=== PATIENT | female | born 1950 | race American Indian/Alaskan Native ===

== ENCOUNTER 2021-06-11 16:47 | Emergency (ER) | payer MEDICARE ==
[2021-06-11] MEDS ORDERED: MORPHINE 4 MG/1 ML INJ IV ONE (20:25)
[2021-06-11] MEDS ORDERED: ONDANSETRON 4 MG/2 ML INJ IV ONE (20:25)
[2021-06-11 20:56] LABS: Basophils # (Auto) 0.1 K/mm3 (0.0-0.1); Basophils % (Auto) 1.1 % (0.0-1.8); Eosinophils # (Auto) 0.3 K/mm3 (0.0-0.4); Eosinophils % (Auto) 4.6 % (0.0-4.3); Hematocrit 43.5 % (30.3-42.9); Hemoglobin 14.2 gm/dl (10.1-14.3); Lymphocytes # (Auto) 2.4 K/mm3 (1.2-5.4); Lymphocytes % (Auto) 40.7 % (13.4-35.0); Mean Corpuscular HGB Conc 33 % (30-34); Mean Corpuscular Volume 96 fl (79-97); Monocytes # (Auto) 0.7 K/mm3 (0.0-0.8); Monocytes % (Auto) 12.6 % (0.0-7.3); Platelet Count 374 K/mm3 (140-440); Red Blood Count 4.54 M/mm3 (3.65-5.03); Red Cell Distribution Width 13.2 % (13.2-15.2)
[2021-06-11 21:42] LABS: Alanine Aminotransferase 18 units/L (7-56); BUN/Creatinine Ratio 23; Blood Urea Nitrogen 18 mg/dL (7-17); Calcium 9.5 mg/dL (8.4-10.2); Hemolysis Index 10
--- NOTE | 2021-06-11 22:37 | Cat Scan Report ---
CT CHEST, ABDOMEN, AND PELVIS WITH CONTRAST INDICATION / CLINICAL INFORMATION: chest trauma - fall. TECHNIQUE: Axial CT images were obtained through the chest, abdomen, and pelvis after 100 cc Omnipaqu e [address] scans at this location are performed using CT dose reduction for RADHA rahman of automated exposure control. COMPARISON: None available. FINDINGS: HEART: No significant abnormality. CORONARY ARTERY CALCIFICATION: Mild. THORACIC AORTA: No significant abnormality. MEDIASTINUM / SUSHILA: No significant abnormality. PLEURA: No pleural effusion. No pneumothorax. LUNGS: No acute air space or interstitial disease. ADDITIONAL CHEST FINDINGS: Severely enlarged thyroid gland which extends into the superior mediastinu m measuring 6.9 x 4.2 x 6.9 cm. The thyroid gland displaces the trachea to the right. LIVER: Mild diffuse hepatic steatosis. GALLBLADDER: Cholelithiasis without wall thickening or pericholecystic fluid. BILE DUCTS: No significant abnormality. PANCREAS: No significant abnormality. SPLEEN: No significant abnormality. ADRENALS: No significant abnormality. RIGHT KIDNEY / URETER: No significant abnormality. No hydronephrosis. LEFT KIDNEY / URETER: Small cysts. No hydronephrosis. STOMACH and SMALL BOWEL: No significant abnormality. COLON: No significant abnormality. APPENDIX: No significant abnormality. PERITONEUM: No free fluid. No free air. No fluid collection. LYMPH NODES: No significant adenopathy. AORTA / ARTERIES: Mild atherosclerotic calcification without acute abnormality. IVC / VEINS: No significant abnormality. URINARY BLADDER: No significant abnormality. REPRODUCTIVE ORGANS: No significant abnormality. ADDITIONAL FINDINGS: None. SKELETAL SYSTEM: Cortical step-off at the inferior sternum seen on sagittal images is likely artifact ual due to respiratory motion. IMPRESSION: 1. No acute abnormality in the chest, abdomen, or pelvis. 2. Cholelithiasis without CT evidence of acute cholecystitis. 3. Hepatic steatosis. 4. Large thyroid gland containing multiple nodules extending into the superior mediastinum with mass effect on the trachea. Recommend dedicated ultrasound and clinical correlation. 5. Cortical step-off seen on the sagittal images of the lower sternum is likely artifactual due to re spiratory motion. Recommend clinical correlation. Signer Name: Sunil Mcdaniel MD Signed: 06/11/2021 10:33 PM Workstation Name: [id number]
--- NOTE | 2021-06-11 22:46 | Emergency Department Report ---
ED Fall HPI - General Chief Complaint: Abdominal Pain Stated Complaint: FALL Source: EMS Mode of arrival: Ambulatory - History of Present Illness Initial Comments: Patient is a 71-year-old -[place] female with a history of hypertension and hypothyroidism who presented to the ED with complaint of acute onset persistent right flank and right lateral chest wall pain after she slipped and fell at home, hitting her right side against a wooden chair 24 hours ago. Patient states that the pain is especially worse with any movement or inhalation. Patient states that she has been taking Tylenol as needed for pain with no relief. Patient denies dizziness, syncope, head or neck injuries, lower back pain, shortness of breath, hemoptysis, hematemesis, nausea and vomiting, hematuria, dysuria, neck pain, change in vision, loss of consciousness, numbness and tingling or weakness of upper and lower extremities bilaterally. MD Complaint: fall, other (right flank, right lateral chest wall pain s/p fall ) -: Sudden Fall From: standing When Fall Occurred: 24 hours [employer] Fall Witnessed: yes, by family Place Fall Occurred: home Loss of Consciousness: none Prolonged Down Time?: no Symptoms Prior to Fall: none Location: chest (right lateral chest wall), back (right mid-thoracic pain), abdomen (right flank) Severity: severe Severity scale (0 -10): 7 Quality: sharp, stabbing Context: tripped/slipped Associated Symptoms: denies, chest paint, abdominal pain (right flank). denies: headache, neck pain, numbness, weakness, shortness of breath, hematuria, unable to walk, confusion - Related Data Previous Rx's Medication Instructions Recorded Last Taken Type Baclofen 20 mg PO Q12H PRN #20 tab 06/11/21 Unknown Rx Ibuprofen [Motrin] 600 mg PO Q8H PRN #30 tablet 06/11/21 Unknown Rx traMADoL [Ultram] 50 mg PO Q6HR PRN #12 tablet 06/11/21 Unknown Rx Allergies Allergy/AdvReac Type Severity Reaction Status Date / Time No Known Allergies Allergy Verified 06/11/21 16:53 ED Review of Systems ROS: Stated complaint: FALL Other details as noted in HPI Constitutional: denies: chills, fever Eyes: denies: eye pain, eye discharge, vision change ENT: denies: ear pain, throat pain Respiratory: denies: cough, shortness of breath, wheezing Cardiovascular: chest pain (right flank and right lateral chest wall pain). denies: palpitations Endocrine: no symptoms reported Gastrointestinal: abdominal pain (right flank and RUQ pain). denies: nausea, diarrhea Genitourinary: denies: urgency, dysuria, discharge Musculoskeletal: denies: back pain, joint swelling, arthralgia Skin: denies: rash, lesions Neurological: denies: headache, weakness, paresthesias Psychiatric: denies: anxiety, depression Hematological/Lymphatic: denies: easy bleeding, easy bruising ED Past Medical Hx - Past Medical History Hx Hypertension: Yes Additional medical history: Hypothyroidism - Medications Home Medications: Home Medications Medication Instructions Recorded Confirmed Last Taken Type Baclofen 20 mg PO Q12H PRN #20 tab 06/11/21 Unknown Rx Ibuprofen [Motrin] 600 mg PO Q8H PRN #30 tablet 06/11/21 Unknown Rx traMADoL [Ultram] 50 mg PO Q6HR PRN #12 tablet 06/11/21 Unknown Rx ED Physical Exam - General Limitations: No Limitations General appearance: alert, in no apparent distress - Head Head exam: Present: atraumatic, normocephalic, normal inspection - Eye Eye exam: Present: normal appearance, PERRL, EOMI Pupils: Present: normal accommodation - ENT ENT exam: Present: normal exam, normal orophraynx, mucous membranes moist, TM's normal bilaterally, normal external ear exam - Neck Neck exam: Present: normal inspection, full ROM. Absent: tenderness - Respiratory Respiratory exam: Present: normal lung sounds bilaterally, chest wall tenderness (palpable right lateral chest wall tenderness). Absent: respiratory distress, wheezes, rales, rhonchi - Cardiovascular Cardiovascular Exam: Present: regular rate, normal rhythm, normal heart sounds. Absent: systolic murmur, diastolic murmur, rubs, gallop - GI/Abdominal GI/Abdominal exam: Present: soft, tenderness (palpable right flank tenderness), normal bowel sounds. Absent: guarding, rebound, hyperactive bowel sounds, hypoactive bowel sounds - Extremities Exam Extremities exam: Present: normal inspection, full ROM, normal capillary refill - Back Exam Back exam: Present: normal inspection, full ROM. Absent: tenderness, CVA tenderness (R), CVA tenderness (L), muscle spasm, paraspinal tenderness, vertebral tenderness - Neurological Exam Neurological exam: Present: alert, oriented X3, CN II-XII intact, normal gait, reflexes normal - Psychiatric Psychiatric exam: Present: normal affect, normal mood - Skin Skin exam: Present: warm, dry, intact, normal color. Absent: rash ED Course Vital Signs 06/11/21 16:52 Temperature 98.5 F Pulse Rate 70 Respiratory 16 Rate Blood Pressure 170/106 [Right] O2 Sat by Pulse 100 Oximetry ED Medical Decision Making - Lab Data Result diagrams: 06/11/21 20:36 06/11/21 20:36 - Radiology Data Radiology results: report reviewed, image reviewed [facility] [address] [place] [address] Cat Scan Report Signed Patient: KAREN EAST MR#: [id number] 42 : 1950 Acct:[id number] Age/Sex: 71 / F ADM Date: 06/11/21 Loc: ED Attending Dr: Ordering Physician: ALCIDES HDEZ Date of Service: 06/11/21 Procedure(s): CT chest w con Accession Number(s): [id number] cc: ALCIDES HDEZ CT CHEST, ABDOMEN, AND PELVIS WITH CONTRAST INDICATION / CLINICAL INFORMATION: chest trauma - fall. TECHNIQUE: Axial CT images were obtained through the chest, abdomen, and pelvis after 100 cc Omnipaque [address] scans at this location are performed using CT dose reduction for ALARA by means of automated exposure control. COMPARISON: None available. FINDINGS: HEART: No significant abnormality. CORONARY ARTERY CALCIFICATION: Mild. THORACIC AORTA: No significant abnormality. MEDIASTINUM / SUSHILA: No significant abnormality. PLEURA: No pleural effusion. No pneumothorax. LUNGS: No acute air space or interstitial disease. ADDITIONAL CHEST FINDINGS: Severely enlarged thyroid gland which extends into the superior mediastinum measuring 6.9 x 4.2 x 6.9 cm. The thyroid gland displaces the trachea to the right. LIVER: Mild diffuse hepatic steatosis. GALLBLADDER: Cholelithiasis without wall thickening or pericholecystic fluid. BILE DUCTS: No significant abnormality. PANCREAS: No significant abnormality. SPLEEN: No significant abnormality. ADRENALS: No significant abnormality. RIGHT KIDNEY / URETER: No significant abnormality. No hydronephrosis. LEFT KIDNEY / URETER: Small cysts. No hydronephrosis. STOMACH and SMALL BOWEL: No significant abnormality. COLON: No significant abnormality. APPENDIX: No significant abnormality. PERITONEUM: No free fluid. No free air. No fluid collection. LYMPH NODES: No significant adenopathy. AORTA / ARTERIES: Mild atherosclerotic calcification without acute abnormality. IVC / VEINS: No significant abnormality. URINARY BLADDER: No significant abnormality. REPRODUCTIVE ORGANS: No significant abnormality. ADDITIONAL FINDINGS: None. SKELETAL SYSTEM: Cortical step-off at the inferior sternum seen on sagittal images is likely artifactual due to respiratory motion. IMPRESSION: 1. No acute abnormality in the chest, abdomen, or pelvis. 2. Cholelithiasis without CT evidence of acute cholecystitis. 3. Hepatic steatosis. 4. Large thyroid gland containing multiple nodules extending into the superior mediastinum with mass effect on the trachea. Recommend dedicated ultrasound and clinical correlation. 5. Cortical step-off seen on the sagittal images of the lower sternum is likely artifactual due to respiratory motion. Recommend clinical correlation. Signer Name: Sunil Mcdaniel MD Signed: 06/11/2021 10:33 PM Workstation Name: [id number] Transcribed By: DB Dictated By: SUNIL MCDANIEL MD Electronically Authenticated By: SUNIL MCDANIEL MD Signed Date/Time: 06/11/212232 DD/ 24 TD/TT: - [facility] [address] [place] [address] Cat Scan Report Signed Patient: KAREN EAST MR#: [id number] [birth year] : 1950 Acct:[id number] Age/Sex: 71 / F ADM Date: 06/11/21 Loc: ED Attending Dr: Ordering Physician: ALCIDES HDEZ Date of Service: 06/11/21 Procedure(s): CT abdomen pelvis w con Accession Number(s): [id number] cc: ALCIDES HDEZ CT CHEST, ABDOMEN, AND PELVIS WITH CONTRAST INDICATION / CLINICAL INFORMATION: chest trauma - fall. TECHNIQUE: Axial CT images were obtained through the chest, abdomen, and pelvis after 100 cc Omnipaque [address] scans at this location are performed using CT dose reduction for ALARA by means of automated exposure control. COMPARISON: None available. FINDINGS: HEART: No significant abnormality. CORONARY ARTERY CALCIFICATION: Mild. THORACIC AORTA: No significant abnormality. MEDIASTINUM / SUSHILA: No significant abnormality. PLEURA: No pleural effusion. No pneumothorax. LUNGS: No acute air space or interstitial disease. ADDITIONAL CHEST FINDINGS: Severely enlarged thyroid gland which extends into the superior mediastinum measuring 6.9 x 4.2 x 6.9 cm. The thyroid gland displaces the trachea to the right. LIVER: Mild diffuse hepatic steatosis. GALLBLADDER: Cholelithiasis without wall thickening or pericholecystic fluid. BILE DUCTS: No significant abnormality. PANCREAS: No significant abnormality. SPLEEN: No significant abnormality. ADRENALS: No significant abnormality. RIGHT KIDNEY / URETER: No significant abnormality. No hydronephrosis. LEFT KIDNEY / URETER: Small cysts. No hydronephrosis. STOMACH and SMALL BOWEL: No significant abnormality. COLON: No significant abnormality. APPENDIX: No significant abnormality. PERITONEUM: No free fluid. No free air. No fluid collection. LYMPH NODES: No significant adenopathy. AORTA / ARTERIES: Mild atherosclerotic calcification without acute abnormality. IVC / VEINS: No significant abnormality. URINARY BLADDER: No significant abnormality. REPRODUCTIVE ORGANS: No significant abnormality. ADDITIONAL FINDINGS: None. SKELETAL SYSTEM: Cortical step-off at the inferior sternum seen on sagittal images is likely artifactual due to respiratory motion. IMPRESSION: 1. No acute abnormality in the chest, abdomen, or pelvis. 2. Cholelithiasis without CT evidence of acute cholecystitis. 3. Hepatic steatosis. 4. Large thyroid gland containing multiple nodules extending into the superior mediastinum with mass effect on the trachea. Recommend dedicated ultrasound and clinical correlation. 5. Cortical step-off seen on the sagittal images of the lower sternum is likely artifactual due to respiratory motion. Recommend clinical correlation. Signer Name: Sunil Mcdaniel MD Signed: 06/11/2021 10:33 PM Workstation Name: [id number] Transcribed By: DB Dictated By: SUNIL MCDANIEL MD Electronically Authenticated By: SUNIL MCDANIEL MD Signed Date/Time: 06/11/212232 DD/ 24 TD/TT: - Medical Decision Making This is a is a 71-year-old -[place] female with a history of hypertension and hypothyroidism who presented to the ED with complaint of acute onset persistent right flank and right lateral chest wall pain after she slipped and fell at home, hitting her right side against a wooden chair 24 hours ago. Patient states that the pain is especially worse with any movement or inhalation. Patient states that she has been taking Tylenol as needed for pain with no relief. In the ED, patient is alert and oriented x3 and is not in any distress. Patient was treated for pain in the ED. Lab test results were reviewed and are all nonactionable. The abdomen pelvis CT scan with contrast and chest CT scan with contrast showed no acute abnormality in the chest, ab domen, or pelvis. It however showed cholelithiasis without CT evidence of acute cholecystitis. In addition, it also showed hepatic steatosis. There was also evidence of a large thyroid gland containing multiple nodules extending into the superior mediastinum with mass effect on the trachea. Recommend dedicated ultrasound and clinical correlation. In addition there was also cortical step- off seen on the sagittal images of the lower sternum is likely artifactual due to respiratory motion. Recommend clinical correlation. On reevaluation, patient's pain is well controlled medication. Patient was discharged home on pain medications and advised to follow-up with her primary care physician in 5 to 7 days for reevaluation return to the ED immediately if symptoms get worse. - Differential Diagnosis Rib fracture; chest contusion; abdominal contusion; pneumothorax Critical care attestation.: If time is entered above; I have spent that time in minutes in the direct care of this critically ill patient, excluding procedure time. ED Disposition Clinical Impression: Contusion of right chest wall Qualifiers: Encounter type: initial encounter Qualified Code(s): S20.211A - Contusion of right front wall of thorax, initial encounter Abdominal wall contusion Qualifiers: Encounter type: initial encounter Qualified Code(s): S30.1XXA - Contusion of abdominal wall, initial encounter Disposition: HOME / SELF CARE / HOMELESS Is pt being admited?: No Does the pt Need Aspirin: No Condition: Stable Instructions: Abdominal Pain (ED), Contusion, [id number], Blunt Chest Trauma Additional Instructions: All lab test results were reviewed and are all nonactionable. All imaging reports were reviewed and are all nonactionable, no evidence of rib fracture or any abdominal abnormalities from the fall. Therefore take medications with food, drink plenty fluids and follow-up with your primary care physician in 5 to 7 days for reevaluation or return to the ED immediately if symptoms get worse. Prescriptions: Baclofen 20 mg PO Q12H PRN #20 tab PRN Reason: Muscle Spasm Ibuprofen [Motrin] 600 mg PO Q8H PRN #30 tablet PRN Reason: Pain traMADoL [Ultram] 50 mg PO Q6HR PRN #12 tablet PRN Reason: Pain Referrals: KARI MELGAR [Other] - 3-5 Days Time of Disposition: 22:51 Print Language: VIETNAMESE
[2021-06-12 00:06] VITALS: BP 189/57
== END 2021-06-12 00:05 | disposition home or self-care (01) ==
LOC: ED 16:47
DX: S20.211A Contusion of right front wall of thorax, initial encounter (principal); S30.1XXA Contusion of abdominal wall, initial encounter; I10 Essential (primary) hypertension; Z79.899 Other long term (current) drug therapy; W19.XXXA Unspecified fall, initial encounter; Y93.89 Activity, other specified; Y92.098 Other place in other non-institutional residence as the place of occurrence of the external cause; Y99.8 Other external cause status
CPT/HCPCS: 36415; 71260; 74177; 80053; 85025; 96374; 96375; 99284; J2270; J2405; Q9967